=== PATIENT | female | born 1980 ===

== ENCOUNTER 2018-09-02 11:44 | Inpatient (IN) | payer SELFPAY ==
[2018-09-02 13:52] LABS: Troponin I Less than 0.010 ng/mL (< 0.028)
[2018-09-02 15:30] VITALS: BMI 39.1
[2018-09-02 16:50] LABS: Troponin I Less than 0.010 ng/mL (< 0.028)
[2018-09-02] MEDS ORDERED: Guaifenesin DM 100-10/5 ML UDCUP PO PRN (17:30)
[2018-09-02] MEDS ORDERED: Acetaminophen 325 MG TAB PO PRN (17:30)
[2018-09-02] MEDS ORDERED: predniSONE 20 MG TAB PO SCH (17:30)
[2018-09-02] MEDS ORDERED: Senokot S 8.6-50 MG TAB PO PRN (17:30)
[2018-09-02] MEDS ORDERED: Aspirin 325 mg Enteric Coated Tablet PO SCH (18:15)
[2018-09-02 19:23] LABS: Folate (Folic Acid) 5.6 ng/mL (7.0-31.4)
[2018-09-02] MEDS: Atorvastatin Calcium 40 MG TAB PO SCH (21:06)
[2018-09-02] MEDS: Famotidine 20 MG TAB PO SCH (21:07)
--- NOTE | 2018-09-03 00:18 | HP ---
REASON FOR ADMISSION: TIA, right Mitchell's palsy. HISTORY OF PRESENT ILLNESS: Patient states that she got up this morning around 6 am with stumbling words. She couldn't swallow well and felt her tongue to be swollen. She woke her up and he confirms the same. She had facial drooping on the right side, they soon went to [facility] and this completely got resolved in 30 minutes. Around 9:00 a.m., patient had a repeat episode of the same and it has been permanent now with right facial droop and slurring of speech. She had some numbness in the right upper extremity, but none at present. No complaints of any weakness or numbness in the right lower extremity. No complaints of chest pain, palpitation, PND or orthopnea. PAST MEDICAL/SURGICAL HISTORY: Questionable hypothyroidism, x1, tonsillectomy, prior history of TIA when she gave . This happened 10 days after giving . With TIA 5-1/2 years back, she had slurred speech and her right leg was not moving, which completely got resolved, tonsillectomy. CURRENT MEDICATIONS: None. ALLERGIES: No known drug allergies. PERSONAL HISTORY: Does not abuse alcohol or drugs. No history of smoking. FAMILY HISTORY: Mother has history of lupus. Father is healthy. CODE STATUS: FULL. REVIEW OF SYSTEMS: The following complete review of systems was negative, unless otherwise mentioned in the HPI or below: Constitutional: Weight loss or gain, ability to conduct usual activities. Skin: Rash, itching. Eyes: Double vision, pain. ENT/Mouth: Nose bleeding, neck stiffness, pain, tenderness. Cardiovascular: Palpitations, dyspnea on exertion, orthopnea. Respiratory: Shortness of breath, wheezing, cough, hemoptysis, fever or night sweats. Gastrointestinal: Poor appetite, abdominal pain, heartburn, nausea, vomiting, constipation, or diarrhea. Genitourinary: Urgency, frequency, dysuria, nocturia. Musculoskeletal: Pain, swelling. Neurologic/Psychiatric: Anxiety, depression. Allergy/Immunologic: Skin rash, bleeding tendency. PHYSICAL EXAMINATION: GENERAL: The patient is a 38-year-old female who is currently not in any acute distress. VITAL SIGNS: Blood pressure 120/78, pulse 70 per minute, respiratory rate 18 per minute, temperature 98 degrees Fahrenheit, saturating 98% on room air. NECK: Supple, no elevated JVD. HEENT: Extraocular muscles intact. Pupils reacting to light. Oral cavity, mucous membranes are moist. No exudates or congestion. CARDIOVASCULAR: S1, S2 heard. Regular rhythm. RESPIRATORY: Air entry 1+ bilaterally. No rales or rhonchi. ABDOMEN: Soft, bowel sounds heard. No tenderness, rigidity or guarding. EXTREMITIES: No peripheral edema or calf tenderness. VASCULAR SYSTEM: Peripheral pulses 2+ bilateral, no ischemic ulcerations or gangrene. CENTRAL NERVOUS SYSTEM: Cranial nerves: There is 7th nerve palsy on right. No other cranial nerves are abnormal on clinical exam. Motor system strength is 5/5 in all four extremities. Reflexes are 2+ bilateral. Babinski is downgoing. Tone is normal. Cerebellar signs are intact. Gait was not tested. PSYCHIATRIC: Patient's mood is euthymic. No hallucinations or delusions. LABORATORY AND X-RAY FINDINGS: Sed rate is 7. CRP is less than 0.5. Troponin x3 is negative. PT 14, INR 1.1, PTT 25, H&H 13 and 38, platelet count 314. White count of 6, MCV is 85. Liver function tests are within normal limits. Albumin is 3.8. Electrolytes are stable. Serum bicarbonate 20, BUN 8, creatinine 0.8, glucose is 94. A CT angiogram of the brain and CT brain done at [facility] was unremarkable. EKG done shows normal sinus rhythm at 60 beats per minute. There is low voltage seen. 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 We will obtain an MRI of the brain and place her on one dose of 80 mg prednisone, then 20 mg daily from tomorrow to see if her Mitchell's palsy response to steroids. We will continue her on aspirin and Lipitor. Lipid profile in the morning. JOSE with reflex in view of her mom having lupus. We will obtain B12, folic acid and TSH levels in the morning. We will continue to closely monitor her on the stroke unit. Likely, patient can be discharged in the morning if her MRI is negative. MTDD
[2018-09-03 05:01] LABS: #Lymphocytes 1.1 thou/uL (1.20-3.40); #Monocytes 0.1 thou/uL (0.11-0.59); #Neutrophils 7.8 thou/uL (1.40-6.50); %Basophils 0.1 % (0.0-1.0); %Eosinophils 0.2 % (0.0-10.0); %Lymphocytes 12.6 % (21.0-51.0); %Neutrophils 86.2 % (42.0-75.0); Hemoglobin 13.1 g/dL (12.0-16.0); Mean Corpuscular HGB CONC 32.9 g/dL (32.0-36.0); Mean Corpuscular Hemoglobin 29.6 pg (27.0-31.0); Mean Platelet Volume 7.4 fL (7.4-10.4); Platelet Count 332 thou/uL (130-400); RBC Distribution Width 11.4 % (11.5-14.5); Red Blood Cell (RBC) Count 4.43 mill/uL (4.20-5.40)
[2018-09-03 05:18] LABS: Anion Gap 15 mmol/L (10-20); BUN (Urea Nitrogen) 13 mg/dL (7.0-18.7); Calc. Creatinine Clearance 151 mL/min (70-130); Calcium 9.3 mg/dL (7.8-10.44); Carbon Dioxide 17 mmol/L (22-29); Cardiac Risk 3.4 (Less than 4.5); Chloride 106 mmol/L (98-107); Cholesterol 201 mg/dl (< 200 Desired); Estimated GFR-MDRD 80; Glucose 134 mg/dL (70-105); HDL Cholesterol 60 mg/dL (>60 Neg Risk); LDL Cholesterol, Calculated 129 mg/dL; Potassium 4.2 mmol/L (3.5-5.1); Sodium 134 mmol/L (136-145); Triglycerides 61 mg/dL (Less than 150)
[2018-09-03] MEDS ORDERED: predniSONE 20 MG TAB PO SCH (08:00)
[2018-09-03] MEDS: Enoxaparin Sodium 40 MG/0.4 ML SYRINGE SC SCH (09:40)
[2018-09-03] MEDS: Famotidine 20 MG TAB PO SCH ×2 (09:40→20:24)
[2018-09-03] MEDS: Aspirin 325 mg Enteric Coated Tablet PO SCH (09:40)
--- NOTE | 2018-09-03 15:59 | MRI ---
MRI BRAIN WITHOUT CONTRAST: Date: 09/03/18 Multiplanar, multisequential imaging of brain obtained. INDICATION: TIA. FINDINGS: Ventricles have normal size and position. There is abnormal gliosis seen in the cortex of the left frontal lobe in the region of the precentral gyrus. This area exhibits restricted diffusion consistent with acute cortical infarct. This would be in the left middle cerebral artery distribution. There is a focal area of high signal on the T1 images, seen on sagittal T1, in the region of the post erior horn of the left lateral ventricle. This shows signal void on gradient echo and may represent a small calcification in the choroid plexus. Calcification is documented at this site on CT. The intracranial internal carotid arteries and proximal cerebral arteries show flow-voids. Review of the recent CT angio study of 09/02/18 revealed patency of the M1 and M2 branches of the lef t middle cerebral. IMPRESSION: Acute cortical infarct involving the left frontal lobe cortex in the region of the precentral gyrus. POS: AIDAN
--- NOTE | 2018-09-03 16:39 | PDOC.PN ---
- Subjective Encounter Start Date: 09/03/18 Encounter Start Time: 15:30 Subjective: Dysarthria, right sided facial droop which started yesterday -: Acute infarction involving left lobe cortex on MRI today - Objective Resuscitation Status: Resuscitation Status FULL:Full Resuscitation MAR Reviewed: Yes Vital Signs & Weight: Vital Signs (12 hours) Temp Pulse Pulse Pulse Resp BP BP 09/03/18 16:00 98.8 F 84 20 09/03/18 11:48 98.5 F 80 20 09/03/18 09:40 98.0 F 62 18 138/87 09/03/18 09:37 78 65 138/87 BP BP Pulse Ox 09/03/18 16:00 116/66 95 09/03/18 11:48 125/67 98 09/03/18 09:40 138/87 96 09/03/18 09:37 114/56 L Weight Weight 100.38 kg I&O: 09/02/18 09/03/18 09/04/18 06:59 06:59 06:59 Intake Total 610 Balance 610 Result Diagrams: 09/03/18 04:45 09/03/18 04:45 Radiology Reviewed by me: Yes (Acute infarction involving left lobe cortex ) <Luna Mcarthur - Last Filed: 09/03/18 16:45> - Objective Resuscitation Status: Resuscitation Status FULL:Full Resuscitation Vital Signs & Weight: Vital Signs (12 hours) Temp Pulse Resp BP Pulse Ox 09/04/18 04:00 97.8 F 71 16 108/63 96 09/04/18 00:00 97.7 F 62 16 114/70 98 09/03/18 20:24 95 09/03/18 20:00 97.9 F 78 16 122/65 95 Weight Weight 232 lb I&O: 09/03/18 09/04/18 09/05/18 06:59 06:59 06:59 Intake Total 610 Balance 610 Result Diagrams: 09/03/18 04:45 09/03/18 04:45 <Franca Allen C - Last Filed: 09/04/18 07:15> Phys Exam - Physical Examination HEENT: PERRLA right sided facial droop Neck: no nodes, no JVD, full ROM Respiratory: clear to auscultation bilateral Cardiovascular: RRR, no rub Gastrointestinal: soft, non-tender, positive bowel sounds Musculoskeletal: no edema, pulses present, edema present Neurological: moves all 4 limbs right sided facial droop Psychiatric: normal affect Skin: no rash, normal turgor, cap refill <2 seconds <Luna Mcarthur - Last Filed: 09/03/18 16:45> Dx/Plan (1) Acute cerebral infarction Code(s): I63.9 - CEREBRAL INFARCTION, UNSPECIFIED Status: Acute Plan: Neuro consult, ASA and statins - Plan cont current plan of care, plan discussed w/ family, PT/OT, speech therapy, DVT proph w/SCDs * . <Luna Mcarthur - Last Filed: 09/03/18 16:45> - Plan -: plan reviewed. agree with plan. * . <Franca Allen C - Last Filed: 09/04/18 07:15>
[2018-09-03] MEDS: Atorvastatin Calcium 40 MG TAB PO SCH (20:24)
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
[2018-09-04 09:21] LABS: Platelet Count 331 thou/uL (130-400)
[2018-09-04 09:24] LABS: Fibrinogen 278 mg/dL (253-463)
[2018-09-04 09:25] LABS: PTT 25.6 SEC (22.9-36.1); Prothrombin Time 13.3 SEC (12.0-14.7)
[2018-09-04 09:27] LABS: D-Dimer Test Less than 0.27 *mcg/mL (0.27-0.43)
[2018-09-04] MEDS: Enoxaparin Sodium 40 MG/0.4 ML SYRINGE SC SCH (09:32)
[2018-09-04] MEDS: Aspirin 325 mg Enteric Coated Tablet PO SCH (09:32)
[2018-09-04] MEDS: Famotidine 20 MG TAB PO SCH ×2 (09:32→20:58)
[2018-09-04 09:49] LABS: FSP-Qualitative Normal (Normal)
[2018-09-04 10:48] LABS: Pregnancy Test - Urine (BHCG) Negative (Negative); Pregu Control Background? CLEAR/WHITE (CLR/WHITE); Pregu Control Bar Appear? YES (CONTROL BAR); Specific Gravity 1.006 (1.002-1.036)
--- NOTE | 2018-09-04 11:13 | PDOC.PN ---
- Subjective Encounter Start Date: 09/04/18 Encounter Start Time: 10:15 Subjective: Follow up for facial droop, acute cortical infarction left lobe cortex - Objective Resuscitation Status: Resuscitation Status FULL:Full Resuscitation MAR Reviewed: Yes Vital Signs & Weight: Vital Signs (12 hours) Temp Pulse Resp BP Pulse Ox 09/04/18 07:53 98.5 F 78 18 111/72 95 09/04/18 04:00 97.8 F 71 16 108/63 96 09/04/18 00:00 97.7 F 62 16 114/70 98 Weight Weight 105.233 kg I&O: 09/03/18 09/04/18 09/05/18 06:59 06:59 06:59 Intake Total 610 Balance 610 Result Diagrams: 09/04/18 08:36 09/03/18 04:45 <O'EhsanLuna cherry - Last Filed: 09/04/18 17:08> - Objective Resuscitation Status: Resuscitation Status FULL:Full Resuscitation Vital Signs & Weight: Vital Signs (12 hours) Temp Pulse Resp BP Pulse Ox 09/04/18 16:00 97.7 F 80 20 117/72 97 09/04/18 11:57 98.1 F 76 20 116/69 96 09/04/18 07:53 98.5 F 78 18 111/72 95 Weight Weight 232 lb I&O: 09/03/18 09/04/18 09/05/18 06:59 06:59 06:59 Intake Total 610 Balance 610 Result Diagrams: 09/04/18 08:36 09/03/18 04:45 <Allen,Dupont C - Last Filed: 09/04/18 19:35> Phys Exam - Physical Examination HEENT: PERRLA, moist MMs, sclera anicteric droop to right side of mouth Neck: no nodes, full ROM Respiratory: clear to auscultation bilateral Cardiovascular: RRR, no rub Gastrointestinal: soft, non-tender, positive bowel sounds Musculoskeletal: no edema, pulses present Neurological: normal sensation, moves all 4 limbs droop to right side of mouth Lymphatic: no nodes Psychiatric: normal affect, A&O x 3 Skin: no rash, cap refill <2 seconds <O'EhsanLuna cherry - Last Filed: 09/04/18 17:08> Dx/Plan (1) Acute cerebral infarction Code(s): I63.9 - CEREBRAL INFARCTION, UNSPECIFIED Status: Acute Plan: CTA of brain and neck is without acute findings, JOSE panel is negative, awaiting ECHO results, will continue to monitor - Plan cont current plan of care, plan discussed w/ family * . <Luna Mcarthur - Last Filed: 09/04/18 17:08> - Plan -: patient seen and examined. agree with D Obriant plan of care * . <Franca Allen C - Last Filed: 09/04/18 19:35>
[2018-09-04] MEDS ORDERED: Iopamidol 370 76% 100 ML VIAL ONE (12:50)
[2018-09-04 14:31] LABS: ANA Symphony (Quantitative) Less than 0.07 Ratio (<0.7 Negative)
[2018-09-04 14:32] LABS: ANA Symphony (Qualitative) Negative (Negative); dsDNA IgG Antibody Less than 0.5 IU/mL (<10 Negative)
--- NOTE | 2018-09-04 15:23 | CT ---
CTA NECK WITH CONTRAST: Multiple axial tomograms were obtained through the neck with IV enhancement following angio protocol with multiplanar reconstruction and 3D post processing. INDICATION: CVA. FINDINGS: There is no abnormality seen at the origin of the arch vessels. Both common carotid arteries are patent and unremarkable. No atherosclerotic change or stricture. Both carotid bulbs are widely patent and symmetric. Both internal carotid arteries are patent and sy mmetric. No stricture or luminal narrowing on either side. The vertebral arteries are patent and symmetric. Basilar artery is patent and unremarkable. No soft tissue abnormality identified. Nonspecific cervical lymph nodes. IMPRESSION: Unremarkable CTA neck. POS: BENITO
[2018-09-04] MEDS: Atorvastatin Calcium 40 MG TAB PO SCH (20:59)
[2018-09-05] MEDS: Enoxaparin Sodium 40 MG/0.4 ML SYRINGE SC SCH (09:19)
[2018-09-05] MEDS: Aspirin 325 mg Enteric Coated Tablet PO SCH (09:19)
[2018-09-05] MEDS: Famotidine 20 MG TAB PO SCH (09:20)
--- NOTE | 2018-09-05 11:02 | PDOC.PN ---
- Subjective Encounter Start Date: 09/05/18 Encounter Start Time: 10:05 Subjective: follow up for CVA, tests, - Objective Resuscitation Status: Resuscitation Status FULL:Full Resuscitation Vital Signs & Weight: Vital Signs (12 hours) Temp Pulse Resp BP Pulse Ox 09/05/18 09:20 94 L 09/05/18 07:39 97.7 F 78 16 104/65 94 L 09/05/18 04:00 97.9 F 60 18 110/58 L 97 09/04/18 23:55 97.9 F 67 19 121/72 97 Weight Weight 105.233 kg Result Diagrams: 09/04/18 08:36 09/03/18 04:45 Radiology Reviewed by me: Yes (CTA head/neck without acute changes, ECHO with EF at 55-60%) Phys Exam - Physical Examination Constitutional: NAD HEENT: PERRLA, moist MMs patient with right sided mouth droop Neck: no nodes Respiratory: no wheezing Cardiovascular: RRR Gastrointestinal: soft, non-tender, positive bowel sounds Musculoskeletal: no edema Neurological: non-focal, normal sensation, moves all 4 limbs Lymphatic: no nodes Psychiatric: normal affect, A&O x 3 Skin: no rash, normal turgor, cap refill <2 seconds Dx/Plan (1) Acute cerebral infarction Code(s): I63.9 - CEREBRAL INFARCTION, UNSPECIFIED Status: Acute Plan: continue ASA and statin. Follow up with PCP and Dr. Morris as an outpatient. - Plan cont current plan of care Patient will be discharged today, will continue ASA and Lipitor. Will have patient f/u with Dr. Billy in [place] and Dr. Morris * . - Discharge Day Minutes spent coordinating discharge of patient: 30
[2018-09-05 11:40] VITALS: BP 114/77; TEMP 97.9
--- NOTE | 2018-09-05 12:35 | PDOC.EVN ---
Event Note - Event Note Event Note: care plan discussed and reviewed with ALDO Mortensen. agree with management and DC plan. Pt was seen with provider.
--- NOTE | 2018-09-06 05:51 | DIS ---
DATE OF ADMISSION: 09/02/2018 DATE OF DISCHARGE: 09/05/2018 DISCHARGE DIAGNOSIS: Acute cerebrovascular accident. CONSULTANTS: Dr. Morris, Neurology. CODE STATUS: FULL. PROCEDURES: Brain MRI with an acute cortical infarct involving the left frontal lobe cortex and jaden on of the precentral gyrus. She also had a CTA of the neck and brain with no acute findings. Had an echocardiogram with an EF of 55%-60% with trace valve regurgitation. PHYSICAL EXAMINATION: Vitals were 97.9 temperature, 71 pulse, respirations, 95% on room air, blood pressure was 114/77. See the hospital note from today for physical exam. She has no know n allergies. MEDICATIONS: She is going to be sent home on new meds: Lipitor 40 mg daily, aspirin 325 mg daily. She did not come in with any medications. DIET: Heart healthy. HOSPITAL COURSE: Patient got up morning of admission was stumbling words could not swallow well and felt like her tongue was swollen. She went to the [facility] for these symptoms completely resolve d within 30 minutes. Around 9:00 in the morning, symptoms returned and facial droop on the right dontrell e remained. She was given a head CT brain, which was within normal limits. No acute findings. A CT A of the neck and head, which were also no acute findings and was sent here for further evaluation. Here, she still has the facial droop on the right side, was seen by Dr. Morris who after the MRI cam e back with an acute CVA and he ordered an echocardiogram, CTA of brain and neck. She also had some additional labs JOSE panel, which was also negative. Patient still has the facial droop on the right side on admission. Coags were within normal limits. Thyroid panel, which is also within normal limi ts. She will be discharged home and follow up with her primary care Dr. Billy in [place] and Dr. Morris. DISPOSITION CONDITION: Stable. She will be sent home.
== END 2018-09-05 12:16 | disposition home or self-care (01) | DRG 66 ==
LOC: ERS 11:44 → INTOOBSV 13:16 → 2SE 13:16 → OBSVTOIN 13:16 → 2SE 13:43
PROVIDERS: ADMIT Internal Medicine; ATTEND Internal Medicine
DX: I63.9 Cerebral infarction, unspecified (principal); R29.810 Facial weakness
CPT/HCPCS: 36415; 70498; 70551; 80048; 80061; 81025; 82607; 82746; 84443; 84484; 85025; 85049; 85300; 85362; 85379; 85384; 85610; 85652; 85730; 86038; 86140; 86225; 87529; 87633; 93005; 93010; 93306; G8978-GP-CH; G8979-GP-CH; G8980-GP-CH; G8987-GO-CH; G8988-GO-CH; G8989-GO-CH; G8999-GN-CI; G9186-GN-CH; J1650; J7506